=== PATIENT | male | born 1970 | race African-American/Black ===

== ENCOUNTER 2019-01-16 18:08 | Emergency (ER) | payer OTHER ==
[~2019-01-16] VITALS: Ht 185.4 cm; Wt 79.5 kg
[~2019-01-16 18:08] MED LIST: IBUP-1542 PO
[2019-01-16 18:24] VITALS: BP 158/95; PULSE 90; RESP 16; Ht 185.4 cm; Wt 79.5 kg
[2019-01-16] MEDS ORDERED: IBUPROFEN 800 MG TAB PO ONE (19:00)
== END 2019-01-16 19:42 | disposition home or self-care (01) ==
LOC: FTE 18:08
DX: M25.522 Pain in left elbow (principal); Z87.891 Personal history of nicotine dependence